=== PATIENT | male | born 1940 | race Caucasian/White ===

== ENCOUNTER 2020-02-09 01:35 | Outpatient (CLI) | payer MEDICARE, SELFPAY ==
[2020-02-09 19:35] LABS: SARS-CoV-2 RNA PCR Negative
== END 2020-02-09 01:36 | disposition home or self-care (01) ==
LOC: ANHCOVIDDT 01:39
PROVIDERS: PCP Internal Medicine; Visit Provider Internal Medicine Cardiovascular Disease
DX: Z01.812 Encounter for preprocedural laboratory examination (principal); Z11.59 Encounter for screening for other viral diseases
CPT/HCPCS: 87635; C9803; U0003

== ENCOUNTER 2020-02-11 05:19 | Day surgery (SDC) | payer MEDICARE, MEDICAID, SELFPAY ==
[2020-02-10 13:43] VITALS: BMI 36.4
[2020-02-11] VITALS (8 sets, daily range): BP systolic 112–145; BP diastolic 51–80; PULSE 60–72; RESP 14–17; TEMP 37.2; O2SAT 95–99
[2020-02-11 07:33] LABS: Basophils Percent Auto 0.2 % (0.2-1.2); Eosinophils Absolute Auto 0.1 K/mm3 (0-0.3); Eosinophils Percent Auto 0.7 % (0-4.4); Hematocrit 49.2 % (42.0-52.0); Hemoglobin 16.6 g/dL (14.0-18.0); Immature Granulocyte Absolute 0.03 K/mm3 (0.00-0.031); Immature Granulocyte Percent A 0.3 % (0-0.5); Lymphocytes Absolute Auto 2.43 K/mm3 (0.9-3.2); Lymphocytes Percent Auto 25.7 % (18.3-44.2); Mean Corpuscular HGB Conc 33.7 g/dl (32-36); Mean Corpuscular Hemoglobin 30.3 pg (26-34); Mean Corpuscular Volume 89.9 fl (80-100); Mean Platelet Volume 10.6 fl (7.4-10.4); Monocytes Absolute Auto 0.7 K/mm3 (0.1-0.6); Monocytes Percent Auto 7.2 % (2.6-8.5); Neutrophils Absolute Auto 6.2 K/mm3 (1.3-6.7); Neutrophils Percent Auto 65.9 % (45.5-73.1); Platelet Count Result 163 k/mm3 (150-375); Red Blood Count 5.47 M/mm3 (4.6-6.20); Red Cell Distribution Width 13.1 % (11.5-14.5); White Blood Count 9.5 K/mm3 (4.5-10.0)
[2020-02-11 07:43] LABS: Anion Gap 11.4 mmol/L (7-16); Blood Urea Nitrogen 25 mg/dL (9-20); Calcium 9.2 mg/dL (8.4-10.2); Carbon Dioxide 27 mmol/L (22-30); Chloride 104 mmol/L (98-107); Estimated CRCL calculation 94 ml/min; Estimated Glomerular Filt Rate > 60; Glucose 112 mg/dL (75-110); Potassium 4.4 mmol/L (3.4-5.0); Sodium 138 mmol/L (137-145)
--- NOTE | 2020-02-11 08:22 | WPDMODSED ---
Moderate Sedation Note-Pt Data Patient Data Allergies Allergy/AdvReac Type Severity Reaction Status Date / Time No Known Allergies Allergy Verified 02/10/20 13:42 Home Medications Medication Instructions Recorded Confirmed Type cholecalciferol (vitamin D3) 125 5,000 unit PO DAILY 05/15/19 02/11/20 History mcg (5,000 unit) capsule coenzyme Q10 30 mg capsule 100 mg PO DAILY 05/15/19 02/11/20 History cyanocobalamin (vitamin B-12) 1,000 mcg PO DAILY 05/15/19 02/11/20 History 1,000 mcg capsule furosemide 20 mg tablet 20 mg PO QAM 05/15/19 02/10/20 History omega-3 fatty acids 1,000 mg 1,000 mg PO DAILY 05/15/19 02/11/20 History capsule potassium chloride 20 mEq 20 meq PO DAILY 05/15/19 02/11/20 History tablet,extended release amlodipine 10 mg tablet 10 mg PO DAILY #90 tablet 06/01/19 02/11/20 Rx blood glucose control, high #1 each 09/01/19 12/29/19 History blood sugar diagnostic #10 each 09/01/19 12/29/19 History blood-glucose meter #1 each 09/01/19 12/29/19 History docusate sodium 100 mg capsule 300 mg PO BID PRN 09/01/19 02/11/20 History lancets 30 gauge #25 each 09/01/19 12/29/19 History ipratropium 0.5 mg-albuterol 3 mg 3 ml INHALATION BID 30 Days #120 ml 11/23/19 02/11/20 Rx (2.5 mg base)/3 mL nebulization soln montelukast 10 mg tablet 10 mg PO DAILY #90 tablet 01/11/20 02/11/20 Rx losartan 50 mg PO BID 02/11/20 02/11/20 History Current Medications: Active Medications Sodium Chloride (Normal Saline Iv) 500 mls @ 100 mls/hr IV CONT .Q5H REGULO Sedation/Anesthesia: No previous sedation/anesthesia problems (including family history). [facility] Past Medical History Medical History Acute bilateral low back pain with sciatica Acute pain of left shoulder Blood in semen Body mass index (bmi) 34.0-34.9, adult (01/21/19) Body mass index (bmi) 36.0-36.9, adult (07/30/18) Calculus of gallbladder with chronic cholecystitis without obstruction Chronic pain of both knees Encounter for screening and preventative care Encounter for surgical aftercare following surgery of digestive system Essential hypertension Gallstones Generalized abdominal pain History of measles, mumps, or rubella Hyperlipidemia Hypertension Nasal sore Other chronic pain Pain in left knee QT prolongation Screening for prostate cancer Symptomatic cholelithiasis Type 2 diabetes mellitus with diabetic neuropathy, without long-term current use of insulin Type 2 diabetes mellitus without complication, without long-term current use of insulin Ventricular tachycardia Vertigo Surgical History Surgical History H/O hernia repair History of lumbar surgery 2018 Family History Family History Father Cerebrovascular accident, Onset Age: 70 Mother Family history of heart disease in male family member before age 55 Acute myocardial infarction Other Family history of obesity Social History Social History Smoking status: Former smoker Smoking end date: 07/08/86 Alcohol intake: never Substance use type: does not use Living arrangements: alone Gender identity (if verbalized by the patient): Male Spiritual care concerns: No Mod Sed Physical Exam Physical Exam Pre Procedural Exam: Normal: Appearance, Eyes, Ears, Nose, Neck, Throat, Airway, Lungs, Heart Size, Heart Rate, Heart Rhythm, Neuro Exam, Abdomen, Liver, Kidneys, Spleen, Breasts, Genitalia, Extremities and Skin Hours since solid foods: 8 Hours since liquid intake: 8 Internal Medicine - PN: Obj Da Vital Signs Vital Signs: Vital Signs - 24 hr 02/11/20 07:15 Temperature 37.2 C Pulse Rate 63 Respiratory Rate 16 Blood Pressure 133/78 Pulse Oximetry 99 Meds/Results Medications: Active Medications Generic Name Dose Route Start Last Adm
--- NOTE | 2020-02-11 08:22 | PM.IMHP ---
H&P: HPI History of Present Illness Date/Time: 02/11/20 08:22 Chief complaint: Abnoromal Stress Test Narrative: Balta Polk is a 79 year old male With past medical history of diabetes, hypertension, hyperlipidemia and COPD as well as history of ventricular tachycardia who was evaluated in my office for ventricular tachycardia. He used to follow up with Dr. ramirez. we were waiting for medical records however we have not gotten any and therefore we arrange for stress testing that came out to be abnormal with fixed defect in the mid and apical inferior wall. Ejection fraction 37%. Patient denies chest pain, shortness of breath, lower limb edema, dizziness, syncope. He is sedentary because of joint pains. Review of Systems Review of Systems: All systems reviewed & are unremarkable except as noted in HPI and below Constitutional: Constitutional: Denies chills, Denies fatigue, Denies fever(s), Denies headache(s) and Denies snoring Eyes: Eyes: Denies eye discharge and Denies loss of vision ENT: Denies dizziness, Denies headache(s), Denies nasal discharge and Denies sore throat Cardiovascular: Cardiovascular: Reports as per HPI, Denies chest pain, Denies syncope, Denies rapid heart rate, Denies leg edema, Denies dyspnea, Denies dyspnea on exertion, Denies orthopnea and Denies paroxysmal nocturnal dyspnea Respiratory: Respiratory: Denies chest congestion, Denies cough, Denies dyspnea, Denies dyspnea on exertion, Denies snoring and Denies wheezing Gastrointestinal: Gastrointestinal: Denies abdominal pain, Denies diarrhea, Denies nausea and Denies vomiting Genitourinary: Genitourinary: Denies hematuria, Denies dysuria, Denies flank pain and Denies urinary frequency Musculoskeletal: Musculoskeletal: Denies myalgias, Denies arthralgias and Denies joint swelling Neurologic: Denies Abnormal speech present, Denies dizziness, Denies syncope, Denies headache(s), Denies focal weakness and Denies loss of vision Psychiatric: Psychiatric: Denies anxiety and Denies depression Endocrine: Endocrine: Denies cold intolerance, Denies fatigue and Denies heat intolerance Hematologic/Lymphatic: Hematologic/Lymphatic: Denies easy bleeding and Denies easy bruising Allergic/Immunologic: Allergic/Immunologic: Denies urticaria and Denies wheezing PMFSH Past Medical History Medical History Acute bilateral low back pain with sciatica Acute pain of left shoulder Blood in semen Body mass index (bmi) 34.0-34.9, adult (01/21/19) Body mass index (bmi) 36.0-36.9, adult (07/30/18) Calculus of gallbladder with chronic cholecystitis without obstruction Chronic pain of both knees Encounter for screening and preventative care Encounter for surgical aftercare following surgery of digestive system Essential hypertension Gallstones Generalized abdominal pain History of measles, mumps, or rubella Hyperlipidemia Hypertension Nasal sore Other chronic pain Pain in left knee QT prolongation Screening for prostate cancer Symptomatic cholelithiasis Type 2 diabetes mellitus with diabetic neuropathy, without long-term current use of insulin Type 2 diabetes mellitus without complication, without long-term current use of insulin Ventricular tachycardia Vertigo Surgical History Surgical History H/O hernia repair History of lumbar surgery 2018 Family History Family History Father Cerebrovascular accident, Onset Age: 70 Mother Family history of heart disease in male family member before age 55 Acute myocardial infarction Other Family history of obesity Social History Social History Smoking status: Former smoker Smoking end date: 07/08/86 Alcohol intake: never Substance use type: does not use Living arrangements: alone Gender avni
--- NOTE | 2020-02-11 08:25 | WPDCARDPROC ---
Cardiac Cath Procedure Note Date of procedure:: 02/11/20 Performing physician:: Kirby Brady MD Date of service February 11, 2020 Indication:: abnormal stress test, ventricular tachycardia Brief clinical history:: Balta Polk is a 79 year old male With past medical history of diabetes, hypertension, hyperlipidemia and COPD as well as history of ventricular tachycardia who was evaluated in my office for ventricular tachycardia. He used to follow up with Dr. ramirez. we were waiting for medical records however we have not gotten any and therefore we arrange for stress testing that came out to be abnormal with fixed defect in the mid and apical inferior wall. Ejection fraction 37%. Patient denies chest pain, shortness of breath, lower limb edema, dizziness, syncope. He is sedentary because of joint pains. Procedure Procedure performed:: 1-Moderate sedation that started at 8:30 a.m.and ended at 8:53 a.m. total duration 23 minutes using 2mg of Versed and 50mcg fentanyl. The registered nurse was shawn haddad. 2-Selective left and right coronary angiogram. 3-Left heart catheterization with measurement of LVEDP and measurement of gradient across aortic valve. 4-Right common femoral arterial angiogram. 5-Deployment of 6 [place] Angio-Seal. Sedation/Medication given:: Moderate sedation. Access site:: Right common femoral artery. Estimated blood loss:: 10cc Procedure note:: After informed consent patient was brought in to veterinary laboratory technician with the was draped and prepped in usual manner. Moderate sedation was given and the right groin was infiltrated using 1% lidocaine. Five [place]ij[place] sheath was obtained using micropuncture needle and the modified Seldinger technique. Selective left coronary angiogram was done using JL4 catheter with the tip of the catheter placed in the left main coronary artery. Selective right coronary angiogram was done using JR4 catheter with the tip of the catheter placed to the right coronary artery. After that 5 Azerbaij[place] pigtail catheter was advanced across the aortic valve into the left ventricle with measurement of LVEDP and measurement of gradient across aortic valve. Right common femoral arterial angiogram was done. Findings:: 1- left coronary artery is a large artery that divides into large LAD, large circumflex artery,Small ramus intermedius. Left main is free of disease. 2- left anterior descending artery is a large artery that runs to the apex and has minimal irregularities. The mid segment and at the same bifurcation point that gives rise to a small diagonal 1 branch and then a large diagonal 2 branch that has minimal irregularities. 3- left circumflex artery is a large artery. It gives rise to large OM 1 and large OM2 branches that are free of disease. 4- Ramus intermedius small artery with minimal irregularities. 4- right coronary artery is Very large artery and dominant with minimal irregularities 5- LVEDP was mm Hg and no gradient across aortic valve. 6- opening arterial pressure was 110/70and closing pressure was 105/60 7- right femoral artery angiogram shows no significant disease in the right common femoral artery. Conclusion:: minimal coronary irregularities. false-positive stress test. frequent premature ventricular contractions. Assessment and Plan Additional Plan 1- we will obtain an echocardiogram to assess cardiac structure and function. the ejection fraction in the stress test was reported to be 37%. 2- Optimize is factor modification for CAD.
--- NOTE | 2020-02-11 08:28 | SUR.PREOP ---
ARRIVES VIA WC TO [facility] 7 FROM OP ADMITTING FOR SCHEDULED LHC W/ DR. ARMÍREZ. DENIES CP OR SOB ON ARRIVAL. GAIT UNSTEADY. FRIEND, PAT, AT SIDE TO WAITING ROOM. ORIENTED TO ROOM, PLAN OF CARE, PROCEDURE. QUESTIONS ANSWERED. IV STARTED, LABS SENT, VS OBTAINED, SKIN PREP COMPLETED, CONSENT SIGNED. VOICES NO C/O. WILL CONTINUE TO MONITOR.
--- NOTE | 2020-02-11 11:19 | SUR.PHASEII ---
1115-pt up to the chair. Groin soft and non-tender, no evidence of bleeding or hematoma noted. Moderate right pedal pulse noted. Will continue to monitor.
--- NOTE | 2020-02-11 12:31 | SUR.PHASEII ---
1115-pt up to a chair. Groin soft and non-tender, no evidence of bleeding or hematoma noted before and after rising. Moderate right pedal pulse noted. Will continue to monitor.
--- NOTE | 2020-02-11 12:50 | SUR.PHASEII ---
1240-pt given D/C orders and instructions. Questions answered and verbalized understanding. AOx4. PIV removed intact. Groin soft and non-tender, no evidence of bleeding or hematoma noted. Moderate right pedal pulse noted. Taken via wheelchair to waiting vehicle. No distress noted or verbalized at time of departure.
== END 2020-02-11 12:40 | disposition home or self-care (01) ==
LOC: ANHCATHLAB 05:20 → ANHCARD 09:02 → ANHCATHLAB 02-29 13:19
PROVIDERS: PCP Internal Medicine; Visit Provider Internal Medicine Cardiovascular Disease
PROC: 4A023N7 Measurement of Cardiac Sampling and Pressure, Left Heart, Percutaneous Approach (ICD-10-PCS; CPT 93452; principal; 2020-02-11 08:30)
DX: R94.39 Abnormal result of other cardiovascular function study (principal); I49.3 Ventricular premature depolarization; I10 Essential (primary) hypertension; E78.5 Hyperlipidemia, unspecified; J44.9 Chronic obstructive pulmonary disease, unspecified; E11.40 Type 2 diabetes mellitus with diabetic neuropathy, unspecified; Z87.891 Personal history of nicotine dependence
CPT/HCPCS: 36415; 80048; 85025; 87635; 93458; A9270; C1760; C1887; C1894; C9803; G0269; J1644; J2250; J3010; J7030; J7040; U0003

== ENCOUNTER 2020-03-22 10:09 | Outpatient (CLI) | payer MEDICARE, MEDICAID, SELFPAY ==
[2020-03-22 10:47] LABS: Basophils Percent Auto 0.5 % (0.2-1.2); Eosinophils Absolute Auto 0.1 K/mm3 (0-0.3); Eosinophils Percent Auto 1.4 % (0-4.4); Hematocrit 45.3 % (42.0-52.0); Hemoglobin 15.4 g/dL (14.0-18.0); Immature Granulocyte Absolute 0.02 K/mm3 (0.00-0.031); Immature Granulocyte Percent A 0.3 % (0-0.5); Lymphocytes Absolute Auto 2.35 K/mm3 (0.9-3.2); Lymphocytes Percent Auto 31.8 % (18.3-44.2); Mean Corpuscular Hemoglobin 30.5 pg (26-34); Mean Corpuscular Volume 89.7 fl (80-100); Mean Platelet Volume 11.4 fl (7.4-10.4); Monocytes Absolute Auto 0.7 K/mm3 (0.1-0.6); Monocytes Percent Auto 8.8 % (2.6-8.5); Neutrophils Absolute Auto 4.2 K/mm3 (1.3-6.7); Neutrophils Percent Auto 57.2 % (45.5-73.1); Platelet Count Result 146 k/mm3 (150-375); Red Blood Count 5.05 M/mm3 (4.6-6.20); Red Cell Distribution Width 13.2 % (11.5-14.5); White Blood Count 7.4 K/mm3 (4.5-10.0)
[2020-03-22 10:57] LABS: Hemoglobin A1C 5.7 % (<5.7)
[2020-03-22 11:12] LABS: Alanine Aminotransferase 22 U/L (4-50); Alkaline Phosphatase 67 U/L (38-126); Anion Gap 6 mmol/L (8-16); Aspartate Amino Transferase 27 U/L (17-59); Bilirubin,Total 1.1 mg/dL (0.2-1.3); Blood Urea Nitrogen 15 mg/dL (9-20); Calcium 8.6 mg/dL (8.4-10.2); Carbon Dioxide 28 mmol/L (22-30); Chloride 103 mmol/L (98-107); Cholesterol 186 mg/dL (0-200); Estimated Glomerular Filt Rate > 60; Glucose 103 mg/dL (75-110); HDL Direct 36 mg/dL; Potassium 4.1 mmol/L (3.4-5.0); Sodium 137 mmol/L (137-145); Triglycerides 69 mg/dL (<150)
[2020-03-22 11:23] LABS: LDL Cholesterol Direct 119 mg/dL
== END 2020-03-22 10:10 | disposition home or self-care (01) ==
LOC: ANHLAB 10:12
PROVIDERS: PCP Internal Medicine; Visit Provider Nurse Practitioner
DX: E11.9 Type 2 diabetes mellitus without complications (principal)
CPT/HCPCS: 36415; 80053; 80061; 83036; 85025

== ENCOUNTER 2020-10-19 16:38 | Outpatient (CLI) | payer MEDICARE, MEDICAID, SELFPAY | END 2020-10-19 16:39 | disposition home or self-care (01) | LOC: ANHCOVIDVC 16:38 | PROVIDERS: PCP Internal Medicine | DX: Z23 Encounter for immunization (principal) | CPT/HCPCS: 0001A; 91300 ==

== ENCOUNTER 2020-11-07 10:02 | Outpatient (RCR) | payer MEDICARE, MEDICAID, SELFPAY ==
--- NOTE | 2020-11-07 11:23 | PCPTNOTE ---
Patient:Balta Polk Date of :1940 Power wheelchair seating clinic [facility] The patient has been evaluated for wheelchair seating and recommendations have been made, with Julieth from [facility] for assistance as the DME provider present. Balta does not meet Medicare guidelines for justification for a power mobility device. He is indep with his ability to walk, perform daily task at home and basic community mobility. His apartment does not properly and safely fit a power or manual wheelchair for use in the house. He has not had any falls or demonstrate muscle weakness that would demonstrate medical need. Therefore, the request for a power mobility device was not completed due to Medicare criteria not met and wheelchair would be denied. Please review, sign, date and return this recognition of care provided. I agree with and certify that the following plan for DME equipment is medically necessary. Doctor signature Date
== END 2020-11-09 14:43 | disposition home or self-care (01) ==
LOC: ANHPT 10:02
PROVIDERS: PCP Internal Medicine; Referring Provider Internal Medicine; Visit Provider Clinical Nurse Specialist
DX: M19.90 Unspecified osteoarthritis, unspecified site (principal)
CPT/HCPCS: 97162

== ENCOUNTER 2020-11-09 16:51 | Outpatient (CLI) | payer MEDICARE, MEDICAID, SELFPAY | END 2020-11-09 16:52 | disposition home or self-care (01) | LOC: ANHCOVIDVC 16:51 | PROVIDERS: PCP Internal Medicine | DX: Z23 Encounter for immunization (principal) | CPT/HCPCS: 0002A; 91300 ==

== ENCOUNTER 2024-02-12 10:54 | Outpatient (CLI) | payer MEDICARE, SELFPAY ==
[2024-02-12 12:40] LABS: Basophils Percent Auto 0.5 % (0.2-1.2); Eosinophils Absolute Auto 0.2 K/mm3 (0-0.3); Eosinophils Percent Auto 1.9 % (0-4.4); Hematocrit 42.3 % (42.0-52.0); Hemoglobin 13.8 g/dL (14.0-18.0); Immature Granulocyte Absolute 0.04 K/mm3 (0.00-0.031); Immature Granulocyte Percent A 0.5 % (0-0.5); Lymphocytes Absolute Auto 2.65 K/mm3 (0.9-3.2); Lymphocytes Percent Auto 30.3 % (18.3-44.2); Mean Corpuscular HGB Conc 32.6 g/dl (32-36); Mean Corpuscular Hemoglobin 30.1 pg (26-34); Mean Corpuscular Volume 92.2 fl (80-100); Mean Platelet Volume 11.3 fl (7.4-10.4); Monocytes Absolute Auto 0.8 K/mm3 (0.1-0.6); Monocytes Percent Auto 8.9 % (2.6-8.5); Neutrophils Absolute Auto 5.1 K/mm3 (1.3-6.7); Neutrophils Percent Auto 57.9 % (45.5-73.1); Platelet Count Result 186 k/mm3 (150-375); Red Blood Count 4.59 M/mm3 (4.6-6.20); Red Cell Distribution Width 14.5 % (11.5-14.5); White Blood Count 8.8 K/mm3 (4.5-10.0)
[2024-02-12 13:18] LABS: Alanine Aminotransferase 17 U/L (6-50); Alkaline Phosphatase 76 U/L (38-126); Anion Gap 10 mmol/L (4-12); Aspartate Amino Transferase 34 U/L (17-59); Bilirubin,Total 0.4 mg/dL (0.2-1.3); Blood Urea Nitrogen 20 mg/dL (9-20); Calcium 8.9 mg/dL (8.4-10.2); Carbon Dioxide 25 mmol/L (22-30); Chloride 101 mmol/L (98-107); Cholesterol 162 mg/dL (0-200); Estimated Glomerular Filt Rate > 60; Glucose 136 mg/dL (65-110); HDL Direct 33 mg/dL; Potassium 4.5 mmol/L (3.4-5.0); Sodium 136 mmol/L (137-145); Triglycerides 149 mg/dL (<150)
[2024-02-12 13:29] LABS: LDL Cholesterol Direct 109 mg/dL
[2024-02-12 13:31] LABS: Creatinine Urine 118.6 mg/dL
[2024-02-12 13:36] LABS: MALB Creatinine Ratio 145.4 mg/g (0-30); Microalbumin Urine Random 172.5 mg/L (0-16.7)
[2024-02-12 16:05] LABS: Hemoglobin A1C 7.1 % (<5.7)
== END 2024-02-12 10:55 | disposition home or self-care (01) ==
LOC: ANHGOSHLAB 10:56
PROVIDERS: PCP Clinical Nurse Specialist; Visit Provider Clinical Nurse Specialist
DX: E11.9 Type 2 diabetes mellitus without complications (principal)
CPT/HCPCS: 36415; 80053; 80061; 82043; 83036; 85025